=== PATIENT | female | born 1965 | race Caucasian/White ===

== ENCOUNTER 2021-03-12 15:44 | Emergency (ER) | payer BC ==
[~2021-03-12] VITALS: Ht 162.6 cm; Wt 73.5 kg
[~2021-03-12 15:44] MED LIST: CALCIUM 500 +1 EAC2 PO; IMITREX25 MG PO; PRILOSEC20 MG PO; PROMETRIUM100 MG; SUMATRIPTAN SUC25 MG PO; VITAMIN D35000 UNI1 PO
== END 2021-03-12 22:18 | disposition home or self-care (01) ==
LOC: ED 15:44
DX: U07.1 COVID-19 (principal); Z23 Encounter for immunization; Z88.2 Allergy status to sulfonamides; Z88.8 Allergy status to other drugs, medicaments and biological substances; Z79.899 Other long term (current) drug therapy
CPT/HCPCS: 99283-25; M0243; Q0244

== ENCOUNTER 2022-04-03 16:14 | Emergency (ER) | payer BC ==
[~2022-04-03] VITALS: Ht 162.6 cm; Wt 79.7 kg
--- NOTE | 2022-04-03 21:45 | EKG ---
[facility] [address] [facility] [place] [address] Signed Sinus rhythm with occasional premature ventricular complexes Nonspecific ST abnormality Prolonged QT Abnormal ECG No previous ECGs available Confirmed by Anne-Marie Arias MD () on 04/03/2022 9:45:02 PM Electronically Signed By: ANNE-MARIE ARIAS MD 04/03/22 2145 PATIENT NAME: ASHOK WATTS Electrocardiogram DATE OF : 61 PHYSICIAN: ANNE-MARIE ARIAS MD REPORT #: [id number] REPORT IS CONFIDENTIAL AND NOT TO BE RELEASED WITHOUT AUTHORIZATION
== END 2022-04-03 19:30 | disposition home or self-care (01) ==
LOC: ED 16:14
DX: R07.89 Other chest pain (principal); T50.5X5A Adverse effect of appetite depressants, initial encounter; Z88.2 Allergy status to sulfonamides; Z88.6 Allergy status to analgesic agent; Z88.8 Allergy status to other drugs, medicaments and biological substances
CPT/HCPCS: 36415; 71045; 80053; 83735; 84484; 85025; 93005; 93010; 99285-25

== ENCOUNTER 2024-06-04 08:53 | Day surgery (SDC) | payer BC ==
[~2024-06-04] VITALS: Ht 165.1 cm; Wt 77.3 kg
[~2024-06-04 08:53] MED LIST changes: +FINASTERIDE5 MG PO; +IBLOOD GLUCOSE TEST STRIP 1 EA TEST VI PRN; +LACTATED RINGER'S 1,000 ML IV SCH; +LIDOCAINE HCL 1% 5 ML SDV INJ ONE; +MIDAZOLAM HCL 5 MG/5 ML VIAL IV PRN; +MINOXIDIL2.5 MG PO; +fentaNYL citrate 100 MCG/2 ML VIAL IV PRN
[2024-06-04 09:27] VITALS: BP 125/75
[2024-06-04] MEDS ORDERED: MIDAZOLAM HCL 5 MG/5 ML VIAL ONE (09:58)
[2024-06-04] MEDS ORDERED: fentaNYL citrate 100 MCG/2 ML VIAL ONE (09:58)
[2024-06-04] MEDS ORDERED: ondansetron HCL 4 MG/2 ML VIAL ONE (10:19)
--- NOTE | 2024-06-04 11:13 | NUR ---
06/04/24 Ronald3 Macy Stallworth 1102 PT ARRIVED TO PACU ON 2L VIA NC, PT WAKES EASILY AND DENIES CONCERNS. VSS. 1112 PT ASLEEP AND RESP RATE AND O2 SAT DECREASED. PT WAKES HERSELF AND EDUCAITON GIVEN ON DEEP BREATHING. O2 SAT AND RESP RATE INCREASED.
[2024-06-04 12:16] VITALS: BP 109/71
--- NOTE | 2024-06-08 10:57 | PATH ---
[facility] [address] [place], [place] [address] Signed SPECIMEN(S): A DESCENDING COLON POLYP SPECIMEN(S): B CECUM COLON POLYP SPECIMEN(S): C TRANSVERSE COLON POLYP SPECIMEN SOURCE: A. DESCENDING COLON POLYP B. CECUM COLON POLYP C. TRANSVERSE COLON POLYP CLINICAL HISTORY: Pre-: Diverticulosis, post colon polyps x 3; diverticulosis FINAL PATHOLOGIC DIAGNOSIS: A. Colon, descending, polypectomy: - Colonic mucosa with no significant pathologic changes B. Cecum, polypectomy: - Tubular adenoma C. Colon, transverse, polypectomy: - Colonic mucosa with no significant pathologic changes BRP MICROSCOPIC EXAMINATION: Histologic sections of all submitted blocks are examined by light microscopy. These findings, together with the gross examination, support the pathologic diagnosis. GROSS DESCRIPTION: A. The specimen, labeled and designated "Gifty, R, descending colon polyp," is received in formalin and consists of one hayden soft tissue fragment, 0.4 cm. Entirely submitted in (A1). B. The specimen, labeled and designated "Gifty, R, cecum colon polyp," is received in formalin and consists of three hayden soft tissue fragments, ranging from 0.2-0.4 cm. Entirely submitted in (B1). C. The specimen, labeled and designated "Gifty, R, transverse colon polyp," is received in formalin and consists of three hayden soft tissue fragments, ranging from 0.1-0.3 cm. Entirely submitted in (C1). AB (under the direct supervision of a pathologist) The Gross Description was prepared using a voice recognition system. The report was reviewed for accuracy; however, sound-alike word errors, addition and/or deletions may occur. If there is any PATIENT NAME: ASHOK WATTS PATHOLOGY DATE OF : 61 REPORT #: [id number] PHYSICIAN: ANABEL ROPER PCP: RAYMOND WOMACK MD REPORT IS CONFIDENTIAL AND NOT TO BE RELEASED WITHOUT AUTHORIZATION [facility] [address] [place], [place] [address] Signed question about this report, please contact Client Services. ADDITIONAL NOTES: Immunohistochemical and/or in situ hybridization studies if performed in this case included appropriate positive controls that reacted as expected. This test was developed and its performance characteristics determined by [facility]. It has not been cleared or approved by the U.S. Food and Drug Administration. The FDA has determined that such clearance or approval is not necessary. This test is used for clinical purposes. It should not be regarded as investigational or for research. [facility] is certified under the Clinical Laboratory Improvement Amendments of 1988 (CLIA) as qualified to perform high complexity clinical laboratory testing. PERFORMING LABORATORY: Technical component was performed by [facility], [address] [place] [address] (CLIA# [id number]). Professional interpretation was performed by [facility], [address] [place] [address] (CLIA#: [id number]). Diagnostician: Blair Alejandro MD Pathologist Electronically Signed 06/08/2024 Copies: ~ PATIENT NAME: ASHOK WATTS PATHOLOGY DATE OF : 61 REPORT #: [id number] PHYSICIAN: ANABLE PATHOLOGY PCP: RAYMOND WOMACK MD REPORT IS CONFIDENTIAL AND NOT TO BE RELEASED WITHOUT AUTHORIZATION
--- NOTE | 2024-06-08 13:16 | OR ---
[facility] [address] [place], [place] [address] Signed DATE OF OPERATION: 06/04/2024 SURGEON: Ralph Robertson MD PREOPERATIVE DIAGNOSIS: Known diverticulosis, last colonoscopy in 2014, asymptomatic. POSTOPERATIVE DIAGNOSES: 1. Sigmoid diverticulosis. 2. Polyps x3. PROCEDURE: Total colonoscopy to cecum with cold snare polypectomy x1 and cold morcellation polypectomy x2. ANESTHESIA: Intravenous sedation, fentanyl 150 mcg and Versed 7 mg. Additional medication, Zofran 4 mg preop. INDICATIONS FOR THE PROCEDURE: This 58-year-old white woman is a patient of Sheryl Womack M.D. She underwent colonoscopy in 2014, finding only sigmoid diverticulosis. She has no current symptoms of bleeding, diarrhea, or constipation and no family history of colon cancer. She is admitted at this time to undergo screening colonoscopy, understands the risk of bleeding, infection, and perforation. FINDINGS: The prep was good. Complete colonoscopy was undertaken of the cecum with full intubation of the cecum. It is noted that the procedure was challenging as it appeared she had a rather redundant colon, but it was ultimately accomplished with full intubation of the cecum. The cecum did show one small polyp. There was another polyp in the transverse colon, one in the sigmoid. Numerous diverticula were noted in the sigmoid. There were no other findings of concern. DESCRIPTION OF PROCEDURE: The patient was brought to the endoscopy suite and placed in the lateral decubitus position. She was given Zofran 4 mg intravenously, and subsequently intravenous sedation with fentanyl and Versed to the point of slurred speech and nystagmus. Additional sedation was given as needed throughout the procedure. After satisfactory Electronically Signed By: RALPH ROBERTSON MD 06/08/24 1316 PATIENT NAME: ASHOK WATTS OPERATIVE REPORT DATE OF : 61 REPORT #: [id number] PHYSICIAN: RALPH ROBERTSON MD PCP: SHERYL WOMACK MD REPORT IS CONFIDENTIAL AND NOT TO BE RELEASED WITHOUT AUTHORIZATION [facility] [address] [place], [place] [address] Signed sedation with full cardiopulmonary monitoring, digital rectal examination was performed, which was normal. An Olympus video colonoscope was passed into the rectum and manipulated throughout the colon noting numerous diverticula of the sigmoid. The scope was passed to the transverse colon and required special efforts for passage, ultimately to the cecum. This included abdominal wall stabilization and ultimately a supine positioning. Ultimately, the scope was fully passed into the cecum. The ileocecal valve and appendiceal orifice were normal. A very small polyp was noted in the cecum was excised with cold morcellation technique. The scope was then withdrawn. Examination undertaken showing a small polyp of the transverse colon, which was excised with cold morcellation technique. Further withdrawal showed another polyp in the sigmoid/left colon, which was excised with cold snare technique. The scope was withdrawn and numerous diverticula were noted of the sigmoid. Retroflexed view of the rectum was normal. Scope was removed. The patient was taken to the recovery room in good condition. CONCLUDING DIAGNOSES: Polyps x3 and diverticulosis. PLAN: Recommend repeat colonoscopy in 7-10 years based on current guidelines, sooner if symptoms should develop. Recommend high-fiber diet as well. She will return to the ongoing care of Dr. Sheryl Womack. Ralph Robertson MD JM/MODL /[id number] cc: SHERYL WOMACK Copies: ~ Electronically Signed By: RALPH ROBERTSON MD 06/08/24 1316 PATIENT NAME: ASHOK WATTS OPERATIVE REPORT DATE OF : 61 REPORT #: [id number] PHYSICIAN: RALPH ROBERTSON MD PCP: SHERYL WOMACK MD REPORT IS CONFIDENTIAL AND NOT TO BE RELEASED WITHOUT AUTHORIZATION
== END 2024-06-04 12:23 | disposition home or self-care (01) ==
LOC: DS 08:53
PROVIDERS: ATTEND Surgery
PROC: 0DBL8ZZ Excision of Transverse Colon, Via Natural or Artificial Opening Endoscopic (ICD-10-PCS; 2024-06-04)
PROC: 0DBN8ZZ Excision of Sigmoid Colon, Via Natural or Artificial Opening Endoscopic (ICD-10-PCS; 2024-06-04)
PROC: 0DBG8ZZ Excision of Left Large Intestine, Via Natural or Artificial Opening Endoscopic (ICD-10-PCS; 2024-06-04)
PROC: 0DBH8ZZ Excision of Cecum, Via Natural or Artificial Opening Endoscopic (ICD-10-PCS; principal; 2024-06-04 09:45)
DX: Z12.11 Encounter for screening for malignant neoplasm of colon (principal); D12.0 Benign neoplasm of cecum; K63.5 Polyp of colon; K57.30 Diverticulosis of large intestine without perforation or abscess without bleeding; Z88.2 Allergy status to sulfonamides; Z88.8 Allergy status to other drugs, medicaments and biological substances; Z90.49 Acquired absence of other specified parts of digestive tract
CPT/HCPCS: 99153; G0500; J2250; J2405; J3010; J7121